=== PATIENT | female | born 1990 | race Caucasian/White ===

== ENCOUNTER 2016-11-15 16:07 | Emergency (ER) | payer BC, OTHER ==
[2016-11-15] MEDS ORDERED: HYDROmorphone 0.5 MG/0.5 ML Syringe IVPUSH ONE (16:21)
--- NOTE | 2016-11-15 16:51 | EDM.PDOC ---
ED HPI GENERAL MEDICAL PROBLEM - General Chief Complaint: Lower Extremity Injury/Pain Stated Complaint: Leg pain Time Seen by Provider: 11/15/16 16:25 Source of Information: Reports: Patient, EMS, RN Notes Reviewed History Limitations: Reports: No Limitations - History of Present Illness INITIAL COMMENTS - FREE TEXT/NARRATIVE: 26 year old female presents to the ED with pain to her posterior left leg. She was playing softball when she felt a pop. The location was to the middle aspect of her posterior left thigh. The pain is severe and worsens with any movement of the knee. She has no crepitus. She does not feel she broke anything. She was unable to walk after the injury. No numbness or tingling. She is from [place]. Left Leg Pain Score (Numeric/FACES): 4 - Related Data Allergies Allergy/AdvReac Type Severity Reaction Status Date / Time medroxyprogesterone acetate Allergy Depression Verified 01/21/15 10:35 CDT [From Depo-Provera] Home Meds: Home Meds Acetaminophen [Tylenol Extra Strength] 500 mg PO Q4H PRN #1 tablet 01/22/15 [Rx] Ibuprofen [Motrin] 400 mg PO Q4H PRN #1 tablet 01/22/15 [Rx] Lanolin [Lansinoh HPA] 1 g TOP ASDIRECTED PRN #1 crm 01/22/15 [Rx] Past Medical History - Past Health History Medical/Surgical History: Denies Medical/Surgical History - Past Surgical History Other Musculoskeletal Surgeries/Procedures:: Cyst removed from lower back. Social & Family History - Tobacco Use Smoking Status *Q: Never Smoker - Caffeine Use Caffeine Use: Reports: None - Recreational Drug Use Recreational Drug Use: No Review of Systems - Review of Systems Review Of Systems: See Below Musculoskeletal: Reports: Leg Pain Skin: Reports: No Symptoms. Denies: Wound Neurological: Reports: No Symptoms. Denies: Numbness, Tingling ED EXAM, GENERAL - Physical Exam Exam: See Below Exam Limited By: No Limitations General Appearance: Alert, WD/WN, Moderate Distress Respiratory/Chest: No Respiratory Distress, Lungs Clear Cardiovascular: Regular Rate, Rhythm Extremities: Normal Inspection, Leg Pain (pain to the left hamstring area. No lumps appreciated. ), Limited Range of Motion (unable to flex left knee due to pain ), Other (no pain over the hip or knee joints ). No: Joint Swelling, Increased Warmth Neurological: Alert, Normal Cognition, No Motor/Sensory Deficits Skin Exam: Warm, Dry, Intact Course - Vital Signs Last Recorded V/S: Last Vital Signs Temp 98.8 F 11/15/16 16:13 Pulse 84 11/15/16 16:13 Resp 20 11/15/16 16:13 BP 117/70 11/15/16 16:13 Pulse Ox 100 11/15/16 16:13 - Orders/Labs/Meds Meds: Medications Discontinued Medications Generic Name Dose Route Start Last Admin Trade Name Freq PRN Reason Stop Dose Admin Hydromorphone HCl 0.5 mg 11/15/16 16:21 11/15/16 16:35 Dilaudid IVPUSH 11/15/16 16:22 0.5 mg ONETIME ONE Administration - Re-Assessments/Exams Free Text/Narrative Re-Assessment/Exam: The patient appears to have torn or strained her hamstring muscles. X-rays will not be helpful since this does not appear to be a bony type injury. Discussed with Dr. Peralta who agrees. Will place patient in a knee immobilizer and crutches. Will treat her pain and discharge with Percocet. She was instructed to f/u with her PCP or orthopedic surgeon in 2-3 days for recheck and to discuss need for MRI. She states understanding and is agreeable to treatment plan. Will send Percocet 1-2 tabs every 4-6 hours PRN #20 and Ibuprofen 800mg PO TID PRN to instymed. Departure - Departure Time of Disposition: 17:20 Disposition: Home, Self-Care 01 Condition: Good Clinical Impression: Hamstring injury Qualifiers: Encounter type: initial encounter Laterality: left Qualified Code(s): S76.302A - Unspecified injury of muscle, fascia and tendon of the posterior muscle group at thigh level, left thigh, initial encounter - Discharge Information Referrals: Boy Arreguin MD [Primary Care Provider] - Forms: ED Department Discharge Additional Instructions: Knee immobilizer and/or yovany wrap to left leg for comfort Crutches No weight bearing Ice and elevate Follow-up with presales senior specialist in [place] in 2-3 days OR follow-up with your primary care provider Ibuprofen 800mg every 8 hours as needed for mild to moderate pain Percocet 1-2 tabs every 4-6 hours as needed for more severe pain No driving for at least 8 hours after taking Percocet
[2016-11-15 18:49] VITALS: BP 115/85
== END 2016-11-15 17:40 | disposition home or self-care (01) ==
LOC: JD.ED 16:07 → SUPCPDRO 16:07 → JD.ED 17:40
DX: S76.302A Unspecified injury of muscle, fascia and tendon of the posterior muscle group at thigh level, left thigh, initial encounter (principal); Z79.899 Other long term (current) drug therapy; X50.9XXA Other and unspecified overexertion or strenuous movements or postures, initial encounter; Y93.64 Activity, baseball
CPT/HCPCS: 96374; 99284; J1170; 99283